=== PATIENT | female | born 1960 | race Caucasian/White ===

== ENCOUNTER 2020-02-05 18:04 | Inpatient (IN) | payer MEDICARE ==
[~2020-02-05] VITALS: Ht 167.6 cm; Wt 68.0 kg
[2020-02-05] MEDS ORDERED: SERT50TA PO (18:24)
[2020-02-05] MEDS ORDERED: TERA5CAP4 PO (18:24)
[2020-02-05] MEDS ORDERED: TRAZ-182 PO (18:24)
--- NOTE | 2020-02-05 18:59 | NUR ---
PATIENT IS AWAKE AND ALERT, SHE IS IN ROOM 3
--- NOTE | 2020-02-05 20:25 | NUR ---
PT WAS TRANSFERED TO [facility] ROOM 141-B. REPORT WAS GIVEN TO RN MHU.
[2020-02-05] MEDS ORDERED: MAGNESIUM HYDROXIDE 30 ML LIQUID UDC PO PRN (22:30)
[2020-02-05] MEDS ORDERED: ACETAMINOPHEN 325 MG TABLET PO PRN (22:30)
[2020-02-05] MEDS ORDERED: MAG HYDROX/AL HYDROX/SIMETH 30 ML LIQUID UDC PO PRN (22:30)
--- NOTE | 2020-02-06 03:54 | NUR ---
GPS: Pt new admit, received to care from ER on 72/hrs hold for general psychosis. Pt was transfer from [facility] in [place]. According to hold and chart, Pt lives at home alone, she called 911 and c/o weakness and inability to go to the bathroom. Upon arriving at the [facility], she appeared delusional, saying she have not eaten in some days due to blood building up in her body, so she cut her nails to let it out. She also said she has been since age 17, and give to a stillborn baby this morning, she also reported not bathed for 8 days now. Upon admission to unit,, she was pleasant and cooperative. Remains fixed in her beliefs during face to face interaction. Snack was offered but took only cranberry juice. Pt denied SI or desire or plans to harm self or others. Pt admitted to visual Hallucinations, faces, things all kind of things she said when I close her eyes!. Pt was advised of hold and pt's Rights Booklet was given. Pt immediately went to sleep from exhaustion. Pt skin assessed and noted scab on both leg toenails with old dry blood. Pt is at this time sleeping with no distress.
--- NOTE | 2020-02-06 06:53 | NUR ---
Pt slept during night 6.00/hrs. and still asleep at this time. No behavior noted breathing even.
[2020-02-06 07:30] VITALS: BP 109/57
[2020-02-06] MEDS: TERAZOSIN 1 MG CAPSULE PO SCH (09:00)
[2020-02-06] MEDS: NICOTINE 14 MG/24HR PATCH TD SCH (09:40)
[2020-02-06] MEDS: CLONAZEPAM 0.5 MG TABLET PO PRN (10:01)
[2020-02-06] MEDS: SERTRALINE HCL 100 MG TABLET PO SCH (10:02)
--- NOTE | 2020-02-06 10:26 | NUR ---
Social Work Initial Discharge Plan: Patient currently resides alone at [address] [place] [address]; ([phone]). Per patient, she would like to return back home upon discharge. Patient does not have any family members to contact at this time. photographic process worker will work with the patient adn the MD regarding appropriate discharge planning. photographic process worker will form a safe and proper discharge.
--- NOTE | 2020-02-06 10:27 | NUR ---
Social Work Family Contact: Patient does not have any family members to contact.
--- NOTE | 2020-02-06 15:19 | NUR ---
Social Work Firearms Report ([employer]): Electrical Troubleshooter completed and submitted a [employer] firearms report for 5[address] grave disability certification. A copy of report has been placed in patient chart.
[2020-02-06 15:22] VITALS: BP 130/60
[2020-02-06] MEDS ORDERED: QUETIAPINE FUMARATE 25 MG TABLET PO SCH ×2 (21:00)
[2020-02-06] MEDS ORDERED: TRAZODONE 50 MG TABLET PO SCH (21:00)
[2020-02-06 21:16] VITALS: BP 132/65
--- NOTE | 2020-02-06 22:00 | NUR ---
received to care, lying in bed, isolative, but pleasant upon approach. compliant with medications and staff direction. as of 0, she appears to be asleep. no distress noted. will continue to monitor closely.
--- NOTE | 2020-02-07 06:00 | NUR ---
slept fairly well. continues to sleep. no distress noted.
[2020-02-07 07:30] VITALS: BP 134/57
--- NOTE | 2020-02-07 07:30 | NUR ---
resting well, no distress noted.
[2020-02-07 07:56] LABS: BASOPHILS # (AUTO) 0.1 K/uL (0.0-8.0); BASOPHILS % (AUTO) 1.2 % (0.0-2.0); EOSINOPHILS # (AUTO) 0.2 K/uL (0.0-0.7); EOSINOPHILS % (AUTO) 3.2 % (0.0-7.0); HEMOGLOBIN 15.1 g/dL (10.9-14.3); LYMPHOCYTES # (AUTO) 3.2 K/uL (20.0-40.0); LYMPHOCYTES % (AUTO) 49.8 % (20.5-51.5); MEAN CORPUSCULAR HEMOGLOBIN 31.2 uug (24.7-32.8); MEAN CORPUSCULAR HGB CONC 34 g/dL (32.3-35.6); MONOCYTES # (AUTO) 0.3 K/uL (2.0-10.0); MONOCYTES % (AUTO) 4.6 % (0.0-11.0); NEUTROPHILS # (AUTO) 2.6 K/uL (1.8-8.9); NEUTROPHILS % (AUTO) 41.2 % (38.5-71.5); PLATELET COUNT (AUTO) 224 K/uL (179-408); RED BLOOD CELL COUNT(AUTO) 4.84 MIL/uL (3.63-4.92); WHITE BLOOD COUNT (AUTO) 6.4 K/uL (3.8-11.8)
[2020-02-07 08:13] LABS: BILIRUBIN,TOTAL 0.4 mg/dL (0.2-1.0); CREATININE 0.8 mg/dL (0.6-1.3); MAGNESIUM 2.2 mg/dL (1.8-2.4); PHOSPHOROUS 4.2 mg/dL (2.5-4.9); POTASSIUM 3.8 mmol/L (3.5-5.1); TOTAL PROTEIN, SERUM 7.7 g/dL (6.4-8.2)
[2020-02-07 08:26] LABS: THYROID STIMULATING HORMONE 1.852 mIU/mL (0.358-3.740)
[2020-02-07] MEDS: NICOTINE 14 MG/24HR PATCH TD SCH (08:50)
[2020-02-07] MEDS: SERTRALINE HCL 100 MG TABLET PO SCH (08:50)
[2020-02-07] MEDS: TERAZOSIN 1 MG CAPSULE PO SCH (08:51)
--- NOTE | 2020-02-07 09:00 | NUR ---
multiple request for food, doesn't like processed food. requesting cereal and milk, provided. appreciative.
--- NOTE | 2020-02-07 15:00 | NUR ---
sleeping well . comfortable.
[2020-02-07 15:30] VITALS: BP 127/68
--- NOTE | 2020-02-07 18:24 | NUR ---
more subtle during pm, calmer. continued to pick her meals, particular with meals, tried to eat . compliant with meds. anxious for discharge
--- NOTE | 2020-02-07 18:27 | NUR ---
stayed most of the time in room ,except when needed to use phone.
[2020-02-07 20:00] VITALS: BP 118/61
[2020-02-07] MEDS: QUETIAPINE FUMARATE 25 MG TABLET PO SCH (20:49)
--- NOTE | 2020-02-07 22:10 | NUR ---
GPS: 1899/Pt receive resting in bed, alert and respond to name, verbally able to communicate needs but noted a bit paranoid, c/o why they did not give me this medications when I was at home?! Reorient to reality and routine meds were given. Cooperative and no new behavior noted. By 2204/ pt c/o not able to sleep with previous meds. Encouraged none pharmacological intervention. Pt requested sleeping med.
[2020-02-07] MEDS: TEMAZEPAM 7.5 MG CAPSULE PO PRN ×2 (22:21→22:25)
--- NOTE | 2020-02-07 22:27 | NUR ---
Restoril 7.5mg given per pt request due to unable to fall asleep. Will continue monitor and safety precaution in place.
--- NOTE | 2020-02-08 06:54 | NUR ---
Pt slept well for 6.15mins after sleeping aid given. continue monitor, no c/o abnormal and breathing even.
[2020-02-08 07:30] VITALS: BP 139/53
[2020-02-08] MEDS: NICOTINE 14 MG/24HR PATCH TD SCH (09:03)
[2020-02-08] MEDS: TERAZOSIN 1 MG CAPSULE PO SCH (09:03)
--- NOTE | 2020-02-08 09:30 | NUR ---
PATIENT ENCOURAGED AND ASSISTED FROM HER BED TO THE D/ROOM FOR ACTIVITIES TWO TIMES BUT PATIENT LEFT THE ACTIVITIES STATED UNABLE TO STAY AND PARTICIPATE AT THIS TIME
--- NOTE | 2020-02-08 10:35 | NUR ---
DR CHOW HERE TO SEE PATIENT WITH NEW ORDERS AND NOTED PATIENT IN ROOM TALING ABOUT HER ROUGH PAST STATING WAS TRYING TO GET AWAY FROM HER PAST BUT STILL UNABLE WANT TO SEE THE MEDICAL DOCTOR FOR SOME MEDICAL ISSUES BUT UNABLE TO STATED WHAT MEDICAL ISSUES SHE HAS STATED WHAT EVER IT IS IS GOING ON IN HER BODY.PATIENT REASSURED THAT SHE WILL BE ABLE TO SEE THE HOSPITALIST TODAY TO ADDRESS THOSE ISSUES.
[2020-02-08 16:00] VITALS: BP 120/70
[2020-02-08] MEDS: CLONAZEPAM 0.5 MG TABLET PO PRN (17:00)
--- NOTE | 2020-02-08 17:00 | NUR ---
PATIENT STATED THAT HER ARM IS HURTING REQUESTED FOR PAIN MEDICATION AND MEDS TO CALM HER DOWN MEDICATED WITH KLONOPIN AND TYLENOL ORDERED AND SHE EXPRESSED THAT IT HELPED HER.REMAINS DELUSIONAL STATED THAT SOMETHING IS IN HER BODY GOING AROUND UNABLE TO FULLY EXPLAIN WILL CONTINUE TO PROVIDE SAFE AND THERAPEUTIC ENVIRONMENT AT ALL TIMES.
[2020-02-08] MEDS: QUETIAPINE FUMARATE 25 MG TABLET PO SCH (20:35)
[2020-02-08 20:59] VITALS: BP 122/64
--- NOTE | 2020-02-08 22:00 | NUR ---
received to care, lying in bed, isolative, but pleasant upon approach. denies any psychotic sx, but remains guarded, and evasive, when questioned. compliant with medications and staff direction. as of 2199, she appears to be asleep. no distress noted. will continue to monitor closely.
--- NOTE | 2020-02-09 06:00 | NUR ---
slept 8.75 hours, total. continues to sleep. no distress noted.
[2020-02-09 07:30] VITALS: BP 147/65
[2020-02-09] MEDS: TERAZOSIN 1 MG CAPSULE PO SCH (09:03)
[2020-02-09] MEDS: CLONAZEPAM 0.5 MG TABLET PO PRN (09:03)
[2020-02-09] MEDS: NICOTINE 14 MG/24HR PATCH TD SCH (09:03)
--- NOTE | 2020-02-09 14:48 | NUR ---
Social Work Individual Therapy: No group is being held due to hatfield virus precautions. workers compensation defense attorney met with patient to discus topic the importance of a support system. Patient presenting problem is labile mood. Patient presents with attention intact and able to engage in meaningful conversation. SW provided active listening and positive affirmation. Patient demonstrates paranoid thoughts stating, "they keep saying they are going to test me but they're not and I don't know why but I am going to here". Patient presents hyperverbal and labile.
[2020-02-09 15:47] VITALS: BP 139/70
--- NOTE | 2020-02-09 16:52 | NUR ---
GPS: Nursing Notes: Thought Disorder: Patient is awake and responding to her name, impaired judgment, A/Ox3, redirect and reorient to reality during shift, believes that she is bleeding out, "I am dying because I am bleeding out... Yes, thank you for the medications... They are going to stop my bleeding...", unkempt appearance, isolative and withdrawn in her room at times, needs a lot of prompting to participate in therapeutic groups, unable to formulate a viable plan for self care, continue with treatment plan.
[2020-02-09 20:00] VITALS: BP 129/66
[2020-02-09] MEDS: QUETIAPINE FUMARATE 25 MG TABLET PO SCH (20:13)
--- NOTE | 2020-02-09 22:20 | NUR ---
pt is now awake. c/o room mate coughing, and being noisy. PRN restoril was given for insomnia. pt was moved to a quieter room, and she was satisfied. will continue to monitor closely.
--- NOTE | 2020-02-09 22:40 | NUR ---
appears to be asleep. no distress noted.
[2020-02-09] MEDS: TEMAZEPAM 7.5 MG CAPSULE PO PRN (23:20)
--- NOTE | 2020-02-10 06:09 | NUR ---
slept 6.75 hours, total. continues to sleep. no distress noted.
[2020-02-10 08:23] VITALS: BP 128/62
[2020-02-10] MEDS: CLONAZEPAM 0.5 MG TABLET PO PRN ×2 (08:25→17:53)
[2020-02-10] MEDS: NICOTINE 14 MG/24HR PATCH TD SCH (08:26)
[2020-02-10] MEDS: TERAZOSIN 1 MG CAPSULE PO SCH (08:26)
--- NOTE | 2020-02-10 10:53 | NUR ---
Social Work Coordination of Care: SW spoke with [facility] [address] [place] [address] [place] [address] ([phone]) and referred patient for outpatient psychiatric services and has an appointment scheduled on Tuesday February 18, 2020 at 10am. [facility] stated they may be able to provide transportation for the patient back home and will give this proposal writer a call back with information.
--- NOTE | 2020-02-10 10:55 | NUR ---
Social Work Coordination of Care: SW spoke with patient's primary care physician's office Dr. Garcia at [facility] [address] [place] [address] [address] Garcia ([phone]) to schedule an appointment. They will give this designer/writer a call back to schedule a date and time for a follow up visit.
--- NOTE | 2020-02-10 11:26 | NUR ---
Social Work Family Contact: SW called Wayne Dax "friend" ([phone]) who stated that he would be willing to come pick her up when she is ready for discharge.
[2020-02-10 15:58] VITALS: BP 113/75
[2020-02-10 20:26] VITALS: BP 114/55
[2020-02-10] MEDS: QUETIAPINE FUMARATE 25 MG TABLET PO SCH (20:40)
--- NOTE | 2020-02-10 22:00 | NUR ---
received to care, pleasant, but guarded, upon approach. compliant with medications, and staff direction. continues to believe that she is bleeding out from different areas of her body. no bleeding noted. reality orientation was attempted, but she remains fixed in her beliefs. mostly isolative, but interacts with with select female peers. as of 2199, she remains awake, talking with another patient. no distress noted. will continue to monitor closely.
--- NOTE | 2020-02-10 23:30 | NUR ---
appears to be asleep. no distress noted.
--- NOTE | 2020-02-11 06:00 | NUR ---
slept 5.5 hours, total. continues to sleep. no distress noted.
[2020-02-11 07:30] VITALS: BP 124/67
[2020-02-11] MEDS: NICOTINE 14 MG/24HR PATCH TD SCH (10:22)
[2020-02-11] MEDS: TERAZOSIN 1 MG CAPSULE PO SCH (10:22)
[2020-02-11] MEDS: CLONAZEPAM 0.5 MG TABLET PO PRN ×2 (10:29→21:26)
--- NOTE | 2020-02-11 14:32 | NUR ---
Social Work Individual Therapy: No group is being held due to COVID-19 virus precautions. company laundry worker met with patient to discuss topic Identifying a support system. Patient presenting problem is labile mood. Patient presents with attention intact and able to engage in meaningful conversation. SW provided active listening, empathy and understanding. Patient continues to demonstrate paranoid thoughts stating, "I haven't seen a doctor in three days and I don't know what I am doing here". Patient also states, "I don't feel safe here people sneak into my room while I'm sleeping and I'm gonna take everyone to court". Patient continues to present hyperverbal and labile.
[2020-02-11 16:00] VITALS: BP 118/58
[2020-02-11] MEDS: QUETIAPINE FUMARATE 25 MG TABLET PO SCH (21:25)
[2020-02-11] MEDS: TEMAZEPAM 7.5 MG CAPSULE PO PRN (22:59)
[2020-02-11 23:04] VITALS: BP 123/59
[2020-02-11 23:10] VITALS: BP 123/59
--- NOTE | 2020-02-12 06:20 | NUR ---
GPS/NSG Patient visible on unit, observed pacing hallway with disheveled unkempt appearance. Labile mood, guarded on approach, compliant with HS medication. Will continue to monitor for safety as well as provide a safe environment. Last observed lying in bed appeared to be asleep.
[2020-02-12] MEDS: NICOTINE 14 MG/24HR PATCH TD SCH (08:45)
[2020-02-12] MEDS: TERAZOSIN 1 MG CAPSULE PO SCH (08:46)
[2020-02-12 09:00] VITALS: BP 118/51
--- NOTE | 2020-02-12 13:13 | NUR ---
Social Work Brief Substance Abuse Intervention: Patient was provided with a brief substance abuse intervention and provided with the [facility] Substance Abuse Self-helpline ([facility]) ([phone]), For smoking cessation, patient was referred to [place] lung association 800-LUNGUSA and Nicotine Anonymous Telephone Meeting ([phone]).
[2020-02-12] MEDS: CLONAZEPAM 0.5 MG TABLET PO PRN (13:24)
--- NOTE | 2020-02-12 14:26 | NUR ---
Social Work Individual Therapy: No group is being held due to COVID-19 virus precautions. vegetable harvest worker met with patient to discuss topic setting boundaries. Patient presenting problem is labile mood. Patient presents with attention intact and able to engage in meaningful conversation. SW provided active listening, and eaplored patient's feelings and thoughts. Patient presents paranoid and delusional and continues to state, "I'm going to need you to document things that will help me in court". Patient is unable to participate in individual counseling and focus on the topic.
[2020-02-12 16:57] VITALS: BP 112/5
[2020-02-12] MEDS: QUETIAPINE FUMARATE 25 MG TABLET PO SCH (20:25)
[2020-02-12 20:26] VITALS: BP 131/66
[2020-02-12] MEDS: TEMAZEPAM 7.5 MG CAPSULE PO PRN (20:30)
--- NOTE | 2020-02-12 20:46 | NUR ---
GPS: Received pt lying in bed, blanket covering her head, and acting delusional but awake to name and respond verbally. Pt seem well aware of surrounding when asked, but c/o unable to get a sleep around here with the constant noise and movement. V/S stable with no fever noted, and no c/o pain. Pt requested Restoril with her routine medication. Made aware of risk for side effect and safety. pt understood benefit and risk but due to dx will monitor closely. Bed alarm in place with face to face Q15 mins monitor will be done during shift.
--- NOTE | 2020-02-13 06:50 | NUR ---
Monitor pt with no abnormal noted, pt slept 8.30mins during shift and continue sleeping at this time, breathing even.
--- NOTE | 2020-02-13 08:10 | NUR ---
Social Work Discharge Note: Patient will be discharged back home [address] [place] [address] ([phone]). Spoke with patients friend Wayne Dax ([phone]) who stated that he will provide transportation for the patient and pick her up at 12PM. Patient is referred to [facility] [address] [place] [address] [place] [address] ([phone]) for outpatient psychiatric services and has an appointment scheduled on Tuesday February 18, 2020 at 10am. Patient will follow up with her primary care physician Dr. Garcia at [facility] [address] [place] [address] ([phone] or [phone]) and has a phone follow up scheduled within 24 hours. Patient is aware and agreeable with discharge plans. Patient presents with normal mood and congruent affect. Patient denies suicidal or homicidal ideation. Patient has no family or supportive contacts to be notified at this time. Patient was also provided with outpatient mental health resources to [facility] Crisis Line , and the National Suicide Prevention Lifeline . Patient was provided with a brief substance abuse intervention and provided with the [facility] Substance Abuse Self-helpline ([facility]) ([phone]), For smoking cessation, patient was referred to [place] [employer] association 800-LUNGUSA and Nicotine Anonymous Telephone Meeting ([phone]) Sunday at 6:15 PM Beginners Meeting PIN [phone]#.
[2020-02-13 08:39] VITALS: BP 124/54
[2020-02-13] MEDS: TERAZOSIN 1 MG CAPSULE PO SCH (08:39)
[2020-02-13] MEDS: NICOTINE 14 MG/24HR PATCH TD SCH (08:39)
--- NOTE | 2020-02-13 12:10 | NUR ---
Gps/Lathe Set Up Person- Discharged to home via private car, accompanied by her friend Wayne. reviewed, diet , skin care, prescriptions, mediciations, safety emphasized, all belonging given back to patient. Prescription(Psych) called in to [facility] pharmacy ([phone])patient verbalized understanding. Per patient she will probably go back to smoking, discouraged from doing so, reminded to removed nicotine patch . Discharged in good spirit with no new c/o offered.
== END 2020-02-13 12:10 | disposition home or self-care (01) | DRG 885 ==
LOC: ER 18:04 → GPS 19:48
PROVIDERS: ADMIT Psychiatry & Neurology Psychiatry; ATTEND Nurse Practitioner Acute Care
DX: F33.3 Major depressive disorder, recurrent, severe with psychotic symptoms (principal); J98.11 Atelectasis; F19.20 Other psychoactive substance dependence, uncomplicated; Z91.14 Patient's other noncompliance with medication regimen; F41.9 Anxiety disorder, unspecified; F10.20 Alcohol dependence, uncomplicated; Y90.9 Presence of alcohol in blood, level not specified; Z73.6 Limitation of activities due to disability; R73.9 Hyperglycemia, unspecified; F29 Unspecified psychosis not due to a substance or known physiological condition
CPT/HCPCS: 36415; 71045; 83735; 84100; 84443; 85025; 93005; A4663